=== PATIENT | male | born 1940 | race African-American/Black ===

== ENCOUNTER 2018-03-12 04:14 | Observation (INO) | payer OTHER ==
[2018-03-12] MEDS ORDERED: KETOROLAC TROMETHAMINE 15 MG/ML VIAL IVPUSH ONE (04:59)
[2018-03-12] MEDS ORDERED: SODIUM CHLORIDE 1,000 ML IV SCH (05:00)
--- NOTE | 2018-03-12 05:05 | PDOC ---
Attending Attestation - Resident Resident Name: RubiaJacky - ED Attending Attestation I have performed the following: I have examined & evaluated the patient, The case was reviewed & discussed with the resident, I agree w/resident's findings & plan, Exceptions are as noted - HPI HPI: 03/12/18 05:03 77-year-old male with past medical history of hypertension, prostate cancer under current treatment presents with reproducible right-sided chest pain. Patient states 2 days ago that he felt general onset of atraumatic right-sided rib pain worsened with movement. Denies any short of breath. States that palpation or movement produces the pain. Denies recent illnesses, fevers, chills , cough, vomiting. Denies any exertional component. Denies any rashes or lesions. - Physicial Exam PE: 03/12/18 05:04 GENERAL: Awake, alert, and fully oriented, in no acute distress. HEAD: No signs of trauma EYES: EOMI, sclera anicteric, conjunctiva clear ENT: Auricles normal inspection, hearing grossly normal, nares patent NECK: Normal ROM, supple, no lymphadenopathy, JVD, or masses LUNGS: Breath sounds equal, clear to auscultation bilaterally. No wheezes, and no crackles HEART: Regular rate and rhythm, normal S1 and S2, no murmurs, rubs or gallops. Reproducible right lateral rib tenderness to palpation. No rashes or lesions. ABDOMEN: Soft, nontender, No guarding, no rebound. No masses EXTREMITIES: Normal range of motion, 1+ nonpitting edema b/l. No clubbing or cyanosis. No cords, erythema, or tenderness NEUROLOGICAL: Cranial nerves II through XII grossly intact. Normal speech SKIN: Warm, Dry, normal turgor, no rashes or lesions noted. - Medical Decision Making 03/12/18 05:05 Vital Signs Temp Pulse Resp BP Pulse Ox 97.9 F 66 19 183/60 100 03/12/18 04:35 03/12/18 04:35 03/12/18 04:35 03/12/18 04:35 03/12/18 04:35 Patient's chest pain is quite atypical. Unlikely to be acute cord syndrome or pulmonary embolism. I suspect this is likely muscle skeletal. However, given his history of age and prostate cancer, we'll send a d-dimer and a troponin. If the tests are negative and the patient reports doing better after Toradol, the patient be discharged home with primary care physician follow-up. 03/12/18 06:56 CBC, BMP 03/12/18 05:25 D-dimer positive. Will need CTA of chest. Pt will require two negative troponin and a negative CT and an improvement of symptoms in order for patient to be eligible for discharge. Otherwise, will need to admit patient if abnormal workup. Case signed out to Dr. Denise for further management and disposition. Heart Score/ECG Review #1 ECG reviewed & interpreted by me at: 06:05 03/12/18 06:56 NSR 60, no std/ariana, normal axis, normal intervals, QTC 434 msec
[2018-03-12 05:19] LABS: URINE APPEARANCE CLEAR; URINE BILIRUBIN NEGATIVE (<2.0 mg/dL); URINE BLOOD 1+ (NEGATIVE); URINE COLOR STRAW; URINE GLUCOSE (UA) NEGATIVE (NEGATIVE); URINE KETONE NEGATIVE (NEGATIVE); URINE LEUK ESTERASE NEGATIVE (NEGATIVE); URINE NITRITE NEGATIVE (NEGATIVE); URINE PROTEIN NEGATIVE (NEGATIVE); URINE UROBILINOGEN NEGATIVE mg/dL (0.2-1.0)
--- NOTE | 2018-03-12 05:21 | PDOC ---
History of Present Illness - General Chief Complaint: Pain Stated Complaint: RIGHT SIDE PAIN Time Seen by Provider: 03/12/18 04:37 History Source: Patient Exam Limitations: No Limitations - History of Present Illness Initial Comments: 03/12/18 05:55 77m with pmh of HTN, prostate cancer under current treatment presents with reproducible right-sided rib pain. Patient states 2 days ago that he felt general onset of atraumatic right-sided rib pain worsened with movement. Denies any short of breath. States that palpation doesn't reproduce the pain, only movement. Denies recent illnesses, fevers, chills, cough, vomiting. Past History - Past Medical History Allergies/Adverse Reactions: Allergies Allergy/AdvReac Type Severity Reaction Status Date / Time No Known Allergies Allergy Verified 03/12/18 04:43 Home Medications: Ambulatory Orders Unobtainable 03/12/18 Cancer: Yes (prostate) COPD: No - Suicide/Smoking/Psychosocial Hx Smoking History: Never smoked Have you smoked in the past 12 months: No Information on smoking cessation initiated: No Hx Alcohol Use: No Drug/Substance Use Hx: No Review of Systems - Review of Systems Able to Perform ROS?: Yes Is the patient limited [place] proficient: No Constitutional: No: Symptoms Reported HEENTM: No: Symptoms Reported Respiratory: No: Symptoms reported Cardiac (ROS): Yes: Symptoms Reported, Chest Pain ABD/GI: No: Symptoms Reported : No: Symptoms Reported Musculoskeletal: No: Symptoms Reported Integumentary: No: Symptoms Reported Neurological: No: Symptoms reported All Other Systems: Reviewed and Negative *Physical Exam - Vital Signs Last Vital Signs Temp Pulse Resp BP Pulse Ox 97.9 F 66 19 183/60 100 03/12/18 04:35 03/12/18 04:35 03/12/18 04:35 03/12/18 04:35 03/12/18 04:35 - Physical Exam Comments: 03/12/18 06:07 GENERAL: Awake, alert, and fully oriented, in no acute distress. HEAD: No signs of trauma EYES: EOMI, sclera anicteric, conjunctiva clear ENT: Auricles normal inspection, hearing grossly normal, nares patent NECK: Normal ROM, supple, no lymphadenopathy, JVD, or masses LUNGS: Breath sounds equal, clear to auscultation bilaterally. No wheezes, and no crackles HEART: Regular rate and rhythm, normal S1 and S2, no murmurs, rubs or gallops. Reproducible right lateral rib tenderness to palpation. No rashes or lesions. ABDOMEN: Soft, nontender, No guarding, no rebound. No masses EXTREMITIES: Normal range of motion, 1+ nonpitting edema b/l. No clubbing or cyanosis. No cords, erythema, or tenderness NEUROLOGICAL: Cranial nerves II through XII grossly intact. Normal speech SKIN: Warm, Dry, normal turgor, no rashes or lesions noted. ED Treatment Course - LABORATORY CBC & Chemistry Diagram: 03/12/18 05:25 03/12/18 05:25 - ADDITIONAL ORDERS Additional order review: Laboratory Results 03/12/18 03/12/18 03/12/18 05:25 05:25 05:00 PT with INR 11.40 INR 1.01 PTT (Actin FS) 31.7 D-Dimer 1570 H Sodium Cancelled Potassium Cancelled Chloride Cancelled Carbon Dioxide Cancelled Anion Gap Cancelled BUN Cancelled Creatinine Cancelled Creat Clearance w eGFR Cancelled Random Glucose Cancelled Calcium Cancelled Total Bilirubin Cancelled AST Cancelled ALT Cancelled Alkaline Phosphatase Cancelled Creatine Kinase Cancelled Troponin I Cancelled Total Protein Cancelled Albumin Cancelled Urine Color Straw Urine Appearance Clear Urine pH 6.0 Ur Specific [place] 1.013 Urine Protein Negative Urine Glucose (UA) Negative Urine Ketones Negative Urine Blood 1+ H Urine Nitrite Negative Urine Bilirubin Negative Urine Urobilinogen Negative Ur Leukocyte Esterase Negative Urine WBC (Auto) <1 Urine RBC (Auto) 2 Ur Epithelial Cells Rare 03/12/18 05:25 RBC 4.78 MCV 76.0 L MCHC 33.2 RDW 21.0 H MPV 8.0 Neutrophils % 45.9 Lymphocytes % 37.8 Monocytes % 12.3 H Eosinophils % 3.2 Basophils % 0.8 - Medications Given in the ED: ED Medications Discontinued Medications Generic Name Dose Route Start Last Admin Trade Name Freq PRN Reason Stop Dose Admin Ketorolac Tromethamine 15 mg 03/12/18 04:59 03/12/18 05:39 Toradol Injection - IVPUSH 03/12/18 05:00 15 mg ONCE ONE Administration Morphine Sulfate 4 mg 03/12/18 06:25 03/12/18 06:41 Morphine Injection - IVPUSH 03/12/18 06:26 4 mg ONCE ONE Administration Medical Decision Making - Medical Decision Making 03/12/18 06:0 Presentation consistent with costochondritis but will ru/o cardiac event, PE 03/12/18 06:50 Patient signed out to Dr. Reis *DC/Admit/Observation/Transfer Diagnosis at time of Disposition: Costochondral pain - Discharge Dispostion Condition at time of disposition: Fair - Referrals Referrals: Anton Flores MD [Primary Care Provider] - - Patient Instructions - Post Discharge Activity
[2018-03-12 05:24] LABS: EPI CELLS RARE /HPF (FEW)
[2018-03-12] MEDS ORDERED: KETOROLAC TROMETHAMINE 15 MG/ML VIAL ONE (05:29)
[2018-03-12 05:32] LABS: BASO % 0.8 % (0-2.0); EOS % 3.2 % (0-4.5); HEMATOCRIT 36.3 % (35.4-49); HEMOGLOBIN 12.1 GM/dL (11.7-16.9); LYMPH % 37.8 % (8-40); MCH 25.3 pg (25.7-33.7); MCHC 33.2 g/dl (32.0-35.9); MONO % 12.3 % (3.8-10.2); NEUT % 45.9 % (42.8-82.8); PLATELET COUNT 288 K/MM3 (134-434); RBC 4.78 M/mm3 (4.00-5.60); WHITE BLOOD COUNT 9.3 K/mm3 (4.0-10.0)
[2018-03-12 05:49] LABS: INR 1.01 (0.82-1.09); PROTHROMBIN TIME (PATIENT) 11.4 SEC (9.7-13.0)
[2018-03-12 05:51] LABS: ACTIVATED PTT 31.7 SECONDS (26.9-34.4)
[2018-03-12] MEDS ORDERED: morphine SULFATE 4 MG/ML VIAL ONE (06:24)
[2018-03-12] MEDS ORDERED: morphine CARPU-JECT 4 MG/1 ML DISP.SYRIN IVPUSH ONE (06:25)
--- NOTE | 2018-03-12 06:58 | PDOC ---
*Physical Exam - Vital Signs Last Vital Signs Temp Pulse Resp BP Pulse Ox 97.9 F 66 19 183/60 100 03/12/18 04:35 03/12/18 04:35 03/12/18 04:35 03/12/18 04:35 03/12/18 04:35 - Physical Exam Comments: 03/12/18 09:30 General Appearance: Nourished. No Apparent Distress HEENT: No Pharyngeal Erythema, Tonsillar Exudate, Tonsillar Erythema Neck: No Cervical Lymphadenopathy Respiratory/Chest: Lungs Clear, Normal Breath Sounds. No Crackles, Rales, Rhonchi, Wheezing Cardiovascular: Regular Rhythm, Regular Rate. No Murmur, Gallops, Rubs Gastrointestinal/Abdominal: Normal Bowel Sounds, Soft. No Guarding, Rebound, Tenderness Musculoskeletal: No CVA Tenderness Extremity: Normal Capillary Refill Integumentary: Normal Color, Dry, Warm Neurologic: Fully Oriented, Alert, Normal Mood/Affect, Normal Response, ED Treatment Course - LABORATORY CBC & Chemistry Diagram: 03/12/18 05:25 03/12/18 06:30 - ADDITIONAL ORDERS Additional order review: Laboratory Results 03/12/18 03/12/18 03/12/18 05:25 05:25 05:00 PT with INR 11.40 INR 1.01 PTT (Actin FS) 31.7 D-Dimer 1570 H Sodium Cancelled Potassium Cancelled Chloride Cancelled Carbon Dioxide Cancelled Anion Gap Cancelled BUN Cancelled Creatinine Cancelled Creat Clearance w eGFR Cancelled Random Glucose Cancelled Calcium Cancelled Total Bilirubin Cancelled AST Cancelled ALT Cancelled Alkaline Phosphatase Cancelled Creatine Kinase Cancelled Troponin I Cancelled Total Protein Cancelled Albumin Cancelled Urine Color Straw Urine Appearance Clear Urine pH 6.0 Ur Specific [place] 1.013 Urine Protein Negative Urine Glucose (UA) Negative Urine Ketones Negative Urine Blood 1+ H Urine Nitrite Negative Urine Bilirubin Negative Urine Urobilinogen Negative Ur Leukocyte Esterase Negative Urine WBC (Auto) <1 Urine RBC (Auto) 2 Ur Epithelial Cells Rare 03/12/18 05:25 RBC 4.78 MCV 76.0 L MCHC 33.2 RDW 21.0 H MPV 8.0 Neutrophils % 45.9 Lymphocytes % 37.8 Monocytes % 12.3 H Eosinophils % 3.2 Basophils % 0.8 - Medications Given in the ED: ED Medications Discontinued Medications Generic Name Dose Route Start Last Admin Trade Name Freq PRN Reason Stop Dose Admin Ketorolac Tromethamine 15 mg 03/12/18 04:59 03/12/18 05:39 Toradol Injection - IVPUSH 03/12/18 05:00 15 mg ONCE ONE Administration Morphine Sulfate 4 mg 03/12/18 06:25 03/12/18 06:41 Morphine Injection - IVPUSH 03/12/18 06:26 4 mg ONCE ONE Administration Progress Note - Progress Note Progress Note: The patient is a 77 year old male who presents for evaluation of chest pain that his likely musculoskeletal in nature. Work up has been negative thus far. The patient is pending a repeat troponin and CTA to evaluate further. Medical Decision Making - Medical Decision Making 03/12/18 18:53 CT is negative for PE as read by our radiologist. Troponin is negative. The patient continues to report no change in his chest pain despite medication. He notes that he has not been evaluated by a visual display associate in the past. We believe he requires admission for further monitoring and work up. We discussed the case with Dr. Calzada who accepted the patient for admission. *DC/Admit/Observation/Transfer Diagnosis at time of Disposition: Chest pain Qualifiers: Chest pain type: unspecified Qualified Code(s): R07.9 - Chest pain, unspecified - Discharge Dispostion Condition at time of disposition: Stable Decision to Admit order: Yes - Referrals - Patient Instructions - Post Discharge Activity
[2018-03-12 07:05] LABS: ALBUMIN 3.6 g/dl (3.4-5.0); ANION GAP 7 (8-16); BILIRUBIN,TOTAL 0.4 mg/dL (0.2-1.0); BLOOD UREA NITROGEN 16 mg/dL (7-18); CALCIUM 9.3 mg/dL (8.5-10.1); CHLORIDE 104 mmol/L (98-107); CO2 26 mmol/L (21-32); CREATININE 0.7 mg/dL (0.7-1.3); GLUCOSE,RANDOM 82 mg/dL (74-106); SGPT/ALT 14 U/L (12-78); SODIUM 137 mmol/L (136-145); TOT PROT 7.6 g/dl (6.4-8.2)
[2018-03-12 07:07] LABS: ALK PHOS 99 U/L (45-117)
[2018-03-12 07:23] LABS: POTASSIUM 4.8 mmol/L (3.5-5.1)
[2018-03-12 07:24] LABS: SGOT/AST 15 U/L (15-37)
--- NOTE | 2018-03-12 10:13 | EKG ---
Test Reason : Blood Pressure : / mmHG Vent. Rate : 060 BPM Atrial Rate : 060 BPM P-R Int : 194 ms QRS Dur : 082 ms QT Int : 434 ms P-R-T Axes : 056 054 028 degrees QTc Int : 434 ms NORMAL SINUS RHYTHM NONSPECIFIC ST ABNORMALITY WHEN COMPARED WITH ECG OF 06-JAN-2018 06:42, NO SIGNIFICANT CHANGE WAS FOUND Confirmed by JACINTA LIZAMA MD ([id number]) on 03/12/2018 10:13:40 AM Referred By: Confirmed By:JACINTA LIZAMA MD
[2018-03-12] MEDS ORDERED: METHOCARBAMOL 500 MG TABLET PO ONE (11:38)
[2018-03-12] MEDS ORDERED: METHOCARBAMOL 500 MG TABLET ONE (11:47)
[2018-03-12] MEDS ORDERED: amLODIPine BESYLATE 10 MG TABLET (FP) PO ONE (11:56)
[2018-03-12] MEDS ORDERED: LISINOPRIL 10 MG TABLET (FP) PO ONE (11:56)
[2018-03-12] MEDS ORDERED: LISINOPRIL 5 MG TABLET (FP) ONE (12:04)
[2018-03-12] MEDS ORDERED: amLODIPine BESYLATE 5 MG TABLET (FP) ONE (12:04)
[2018-03-12 16:03] VITALS: BMI 33.5
[2018-03-12] MEDS ORDERED: traMADol HCL 50 MG TABLET PO PRN (17:19)
[2018-03-12] MEDS ORDERED: ACETAMINOPHEN 325 MG TABLET (FP) PO PRN (17:19)
[2018-03-12] MEDS: morphine CARPU-JECT 2 MG/1 ML DISP.SYRIN IVPUSH PRN (17:31)
[2018-03-12] MEDS: amLODIPine BESYLATE 10 MG TABLET (FP) PO SCH (17:31)
--- NOTE | 2018-03-12 20:12 | CON.CARD ---
Consult Consult Specialty:: Cardiology Referred by:: Dr. Calzada Reason for Consultation:: Chest pain - History of Present Illness Chief Complaint: Chest pain History of Present Illness: 77 year-old man with a PMHx of HTN, s/p low back operation with gradually improved back pain, prostate cancer under current treatment presented to ED 2017 with reproducible right-sided rib pain. The patient developed atraumatic upper right-sided rib pain worsened with movement and on palpation. He has no SOB, palpitation, syncope or near syncope. No edema, orthopnea or PND. His exercise tolerance is very limited because of back pain. He can walk one block in slow pace with his walker. PE ruled out by CTA. ECG is normal without acute ST-T changes. WI ruled out. Echocardiogram 03/12/2018 was TDS. It showed normal LV and RV. Mild AR and MR noted. - History Source History Provided By: Patient Limitations to Obtaining History: No Limitations - Alcohol/Substance Use Hx Alcohol Use: No - Smoking History Smoking history: Never smoked Have you smoked in the past 12 months: No Home Medications - Allergies Allergies/Adverse Reactions: Allergies Allergy/AdvReac Type Severity Reaction Status Date / Time No Known Allergies Allergy Verified 03/12/18 04:43 - Home Medications Home Medications: Ambulatory Orders Amlodipine Besylate 10 mg PO DAILY 03/12/18 Lisinopril 10 mg PO DAILY 03/12/18 Review of Systems - Review of Systems Constitutional: reports: No Symptoms Eyes: reports: No Symptoms HENT: reports: No Symptoms Neck: reports: No Symptoms Cardiovascular: reports: Chest Pain Respiratory: reports: No Symptoms Gastrointestinal: reports: No Symptoms Genitourinary: reports: No Symptoms Musculoskeletal: reports: Back Pain Integumentary: reports: No Symptoms Neurological: reports: No Symptoms Endocrine: reports: No Symptoms Hematology/Lymphatic: reports: No Symptoms Vital Signs: Vital Signs Temperature 98.6 F 03/12/18 15:40 Pulse Rate 56 L 03/12/18 18:35 Respiratory Rate 13 03/12/18 18:35 Blood Pressure 150/57 03/12/18 18:35 O2 Sat by Pulse Oximetry (%) 98 03/12/18 18:35 General: Well developed. Well nourished. No acute distress. Head: Normocephalic. Atraumatic, Eyes: PERRLA, EOMI. Sclerae anicteric. Conjunctivae clear. Neck: Supple. No JVD. No bruits. Heart: Normal S1, S2: Regular rhythm and rate. II/ KEEGAN. No gallop or rub. Lungs: Symmetrical air entry. Clear to auscultation. No crackle. No wheezing or rhonchi. Abdomen: Soft. Bowel sound positive. Non tender. No masses. Extremities: No edema. No clubbing or cyanosis. PD 2+, equal bilaterally. - Other Data Labs, Other Data: CBC, BMP 03/12/18 05:25 03/12/18 06:30 INR, PTT INR 1.01 (0.82-1.09) 03/12/18 05:25 Troponin, BNP 03/12/18 03/12/18 03/12/18 05:25 06:30 11:06 Troponin I Cancelled < 0.02 < 0.02 Troponin, BNP 03/12/18 03/12/18 03/12/18 05:25 06:30 11:06 Troponin I Cancelled < 0.02 < 0.02 Imaging - Results Cat Scan: Report Reviewed (No PE.) EKG: Image Reviewed (03/12/2018 Sinus rhythm. Normal ECG.) Assessment/Plan 77 year-old man with a PMHx of HTN, s/p low back operation with gradually improved back pain, prostate cancer under current treatment presented to ED 2017 with reproducible right-sided rib pain. PE ruled out by CTA. ECG is normal without acute ST-T changes. WI ruled out. Echocardiogram 03/12/2018 was TDS. It showed normal LV and RV. Mild AR and MR noted. 1) Atypical chest pain: reproducible with local tenderness, non-cardiac, not acute coronary syndrome. Echo showed normal LV function without regional wall motion abnormality. No further cardiac testing recommended at this time. No need additional equipment monitor phototypesetting. Add aspirin 81 mg daily. 2) Hypertension: BP is mild to moderately elevated. May increase Lisinopril to 20 mg daily. Continue Amlodipine 10 mg daily. Please call us for reconsult as needed.
[2018-03-12] MEDS: HEPARIN NA (PORCINE) 5,000 UNITS/ML 1ML VIAL SQ SCH (21:28)
[2018-03-13] MEDS: morphine CARPU-JECT 2 MG/1 ML DISP.SYRIN IVPUSH PRN ×2 (00:16→09:19)
[2018-03-13 06:36] VITALS: TEMP 98.6
--- NOTE | 2018-03-13 07:30 | HP ---
Admitting History and Physical - Primary Care Physician PCP: Jordana Mercedes - Admission Chief Complaint: Chest Pain History of Present Illness: 77-year-old male with past medical history of hypertension, prostate cancer under current treatment presents with reproducible right-sided chest pain. Patient states 2 days ago that he felt general onset of atraumatic right-sided rib pain worsened with movement. Denies any short of breath. States that palpation or movement produces the pain. Denies recent illnesses, fevers, chills , cough, vomiting. Denies any exertional component. Denies any rashes or lesions. History Source: Patient Limitations to Obtaining History: No Limitations - Smoking History Smoking history: Never smoked Have you smoked in the past 12 months: No - Alcohol/Substance Use Hx Alcohol Use: No Home Medications - Allergies Allergies/Adverse Reactions: Allergies Allergy/AdvReac Type Severity Reaction Status Date / Time No Known Allergies Allergy Verified 03/12/18 04:43 - Home Medications Home Medications: Ambulatory Orders RX: Amlodipine Besylate 10 mg PO DAILY 03/12/18 RX: Lisinopril 10 mg PO DAILY 03/12/18 RX: Acetaminophen [Tylenol .Regular Strength -] 650 mg PO Q6H PRN tablet RX: traMADol HCL [Ultram -] 50 mg PO Q6H PRN #20 tablet MDD 4 03/13/18 Review of Systems - Review of Systems Constitutional: reports: No Symptoms Eyes: reports: No Symptoms HENT: reports: No Symptoms Neck: reports: No Symptoms Cardiovascular: reports: Chest Pain Respiratory: reports: No Symptoms Gastrointestinal: reports: No Symptoms Genitourinary: reports: No Symptoms Breasts: reports: No Symptoms Reported Musculoskeletal: reports: No Symptoms Integumentary: reports: No Symptoms Neurological: reports: No Symptoms Endocrine: reports: No Symptoms Hematology/Lymphatic: reports: No Symptoms Psychiatric: reports: No Symptoms Physical Examination Vital Signs: Vital Signs Temperature 98.6 F 03/13/18 06:00 Pulse Rate 64 03/13/18 06:00 Respiratory Rate 17 03/13/18 06:00 Blood Pressure 157/64 03/13/18 06:00 O2 Sat by Pulse Oximetry (%) 97 03/12/18 21:53 Constitutional: Yes: Well Nourished, No Distress, Calm Cardiovascular: Yes: Regular Rate and Rhythm Respiratory: Yes: Regular Gastrointestinal: Yes: Normal Bowel Sounds, Soft Musculoskeletal: Yes: WNL Extremities: Yes: WNL Integumentary: Yes: WNL Neurological: Yes: Alert, Oriented Psychiatric: Yes: Alert, Oriented Labs: CBC, BMP 03/12/18 05:25 03/12/18 06:30 Imaging - Results Chest X-ray: Report Reviewed Cat Scan: Report Reviewed Problem List - Problems (1) Chest pain Assessment/Plan: -Seen by cardiology and cleared to be discharged -Echo unremarkable -EKG- no changes -Cardiac enzymes negative -Pain only on inspiration, no SOB, N,V -CTA negative for PE Code(s): R07.9 - CHEST PAIN, UNSPECIFIED Qualifiers: Chest pain type: unspecified Qualified Code(s): R07.9 - Chest pain, unspecified Assessment/Plan see problem list d/c home, pt to f/u with PCP within 1 week
[2018-03-13] MEDS ORDERED: PT OWN MED DRAWER 7, Y5N ONE (09:18)
[2018-03-13] MEDS: HEPARIN NA (PORCINE) 5,000 UNITS/ML 1ML VIAL SQ SCH (09:22)
[2018-03-13] MEDS: amLODIPine BESYLATE 10 MG TABLET (FP) PO SCH (09:23)
--- NOTE | 2018-03-13 12:30 | DS ---
Physical Examination Vital Signs: Vital Signs Temperature 98.6 F 03/13/18 06:00 Pulse Rate 70 03/13/18 09:29 Respiratory Rate 12 03/13/18 09:29 Blood Pressure 130/55 03/13/18 09:29 O2 Sat by Pulse Oximetry (%) 99 03/13/18 09:30 Constitutional: Yes: Well Nourished, No Distress, Calm Cardiovascular: Yes: Regular Rate and Rhythm Respiratory: Yes: Regular Gastrointestinal: Yes: Normal Bowel Sounds, Soft Musculoskeletal: Yes: WNL Extremities: Yes: WNL Neurological: Yes: Alert, Oriented Psychiatric: Yes: Alert, Oriented Labs: CBC, BMP 03/12/18 05:25 03/12/18 06:30 Discharge Summary Reason For Visit: CHEST PAIN Current Active Problems Chest pain (Acute) Hospital Course: 77-year-old male with past medical history of hypertension, prostate cancer under current treatment presents with reproducible right-sided chest pain. Patient states 2 days ago that he felt general onset of atraumatic right-sided rib pain worsened with movement. Denies any short of breath. States that palpation or movement produces the pain. Denies recent illnesses, fevers, chills , cough, vomiting. Denies any exertional component. Denies any rashes or lesions. Condition: Stable - Instructions Diet, Activity, Other Instructions: Take Tramadol 50 mg every 6 hours as needed for pain Follow up with PCP in 1 week Referrals: Roseanne Morris MD [Staff Physician] - Disposition: HOME - Home Medications Comprehensive Discharge Medication List: Ambulatory Orders RX: Amlodipine Besylate 10 mg PO DAILY 03/12/18 RX: Lisinopril 10 mg PO DAILY 03/12/18 RX: Acetaminophen [Tylenol .Regular Strength -] 650 mg PO Q6H PRN tablet RX: traMADol HCL [Ultram -] 50 mg PO Q6H PRN #20 tablet MDD 4 03/13/18
[2018-03-13 13:23] VITALS: BP 122/52; PULSE 62
== END 2018-03-13 14:00 | disposition home or self-care (01) ==
LOC: JER 04:14 → JERBED 13:56 → INTOOBSV 13:56 → J2W 15:31
PROVIDERS: ADMIT Family Medicine; ATTEND Family Medicine
PROC: 3E0333Z Introduction of Anti-inflammatory into Peripheral Vein, Percutaneous Approach (ICD-10-PCS; principal; 2018-03-12)
PROC: 3E033NZ Introduction of Analgesics, Hypnotics, Sedatives into Peripheral Vein, Percutaneous Approach (ICD-10-PCS; 2018-03-12)
PROC: 3E0337Z Introduction of Electrolytic and Water Balance Substance into Peripheral Vein, Percutaneous Approach (ICD-10-PCS; 2018-03-12)
PROC: 3E013GC Introduction of Other Therapeutic Substance into Subcutaneous Tissue, Percutaneous Approach (ICD-10-PCS; 2018-03-12)
DX: R07.89 Other chest pain (principal); I10 Essential (primary) hypertension; C61 Malignant neoplasm of prostate
CPT/HCPCS: 36415; 71045-TC-FY; 71275-TC; 80053; 81003; 81015; 82550; 83735; 84484; 85025; 85379; 85610; 85730; 87086; 93005; 93010; 96372; 96374; 96375; 96376; 99285-25; G0378; J1644; J7030

== ENCOUNTER 2018-07-21 12:03 | Emergency (ER) | payer OTHER ==
[2018-07-21 12:11] VITALS: BMI 33.8
[2018-07-21] MEDS ORDERED: ACETAMINOPHEN 1000 MG/100 ML VIAL (NON FORMULARY) IVPB ONE (13:16)
[2018-07-21] MEDS ORDERED: ACETAMINOPHEN INJECTION 100 ML IVPB ONE (13:23)
--- NOTE | 2018-07-21 13:38 | PDOC ---
History of Present Illness <Yoly Diaz - Last Filed: 07/21/18 17:33> - History of Present Illness Initial Comments: 07/21/18 13:59 The patient is a 77 year old male, with a significant PMH of HTN and prostate cancer s/p radiation, last radiation was 2 weeks ago at [facility] who presents to the emergency department with increased swelling and weakness to the bilateral lower extremities for the past two weeks. Patient states he would typically use his walker to go to a clinic in the [place] for his radiation. Since then patient has noticed increased swelling and weakness as he has not been ambulating as much. Patient notes he could walk up until four days ago. Patient presents to the ER today because he could not get up and required assistance, which is not normal for him. Patient is also complaining of wounds to his posterior legs and his buttocks. Patient reports having a lower back surgery for a cyst of the spine back in 2017. Patient has no urinary complaints today. Denies numbness in LE. The patient denies chest pain, shortness of breath, headache and dizziness. Denies fever, chills, nausea, vomit, diarrhea and constipation. Denies dysuria, frequency, urgency and hematuria. Allergies: NKA Meds: Tramadol, lisinopril, amlodipine, bicalutamide, baby aspirin Past surgical history: None reported. Social history: No reported alcohol, drug, or cigarette use. PCP: Care is received at [facility]. Unknown who his oncologist is. <Abdullahi Rosenberg - Last Filed: 07/22/18 19:54> - General Chief Complaint: Edema Stated Complaint: Edema Time Seen by Provider: 07/21/18 12:19 Past History <Yoly Diaz - Last Filed: 07/21/18 17:33> - Past Medical History Anemia: No Asthma: No Cancer: Yes (prostate,currently treated with radiation at [facility].) Cardiac Disorders: No CVA: No COPD: No CHF: No Dementia: No Diabetes: No GI Disorders: No Disorders: No HTN: Yes Hypercholesterolemia: No Liver Disease: No Seizures: No Thyroid Disease: No Other medical history: last radiation tx 07/14/18 - Surgical History Abdominal Surgery: No Appendectomy: No Cardiac Surgery: No Cholecystectomy: No Lung Surgery: No Neurologic Surgery: Yes (laminectomy 07/2017) Orthopedic Surgery: No - Suicide/Smoking/Psychosocial Hx Smoking History: Unknown if ever smoked Have you smoked in the past 12 months: No Hx Alcohol Use: No Drug/Substance Use Hx: No Substance Use Type: None Hx Substance Use Treatment: No <Abdullahi Rosenberg - Last Filed: 07/22/18 19:54> - Past Medical History Allergies/Adverse Reactions: Allergies Allergy/AdvReac Type Severity Reaction Status Date / Time No Known Allergies Allergy Verified 07/21/18 12:11 Home Medications: Ambulatory Orders Amlodipine Besylate 10 mg PO DAILY 03/12/18 Lisinopril 10 mg PO DAILY 03/12/18 Acetaminophen [Tylenol .Regular Strength -] 650 mg PO Q6H PRN tablet 03/13/18 Aspirin 81 mg PO DAILY 07/21/18 Atorvastatin Calcium [Lipitor] 20 mg PO DAILY 07/21/18 Bicalutamide [Casodex -] 50 mg PO DAILY 07/21/18 Naproxen Sodium [Aleve] 440 mg PO DAILY 07/21/18 Tramadol HCl 50 mg PO BID 07/21/18 Review of Systems - Review of Systems Comments:: 07/21/18 14:03 GENERAL/CONSTITUTIONAL: No fever or chills. No weakness. HEAD, EYES, EARS, NOSE AND THROAT: No change in vision. No ear pain or discharge. No sore throat. GASTROINTESTINAL: No nausea, vomiting, diarrhea or constipation. GENITOURINARY: No dysuria, frequency, or change in urination. CARDIOVASCULAR: No chest pain or shortness of breath. RESPIRATORY: No cough, wheezing, or hemoptysis. MUSCULOSKELETAL: (+) Leg swelling and weakness. No neck pain. SKIN: (+) Ulcers on his posterior legs and buttocks. NEUROLOGIC: No headache, vertigo, loss of consciousness, or change in strength/ sensation. ENDOCRINE: No increased thirst. No abnormal weight change. HEMATOLOGIC/LYMPHATIC: No anemia, easy bleeding, or history of blood clots. ALLERGIC/IMMUNOLOGIC: No hives or skin allergy. <Abdullahi Rosenberg - Last Filed: 07/22/18 19:54> *Physical Exam - Vital Signs Last Vital Signs Temp Pulse Resp BP Pulse Ox 99.2 F 90 18 150/57 L 100 07/21/18 12:53 07/21/18 12:53 07/21/18 12:53 07/21/18 12:10 07/21/18 12:53 <Yoly Diaz - Last Filed: 07/21/18 17:33> - Vital Signs Last Vital Signs Temp Pulse Resp BP Pulse Ox 99.2 F 90 18 150/57 L 100 07/21/18 12:53 07/21/18 12:53 07/21/18 12:53 07/21/18 12:10 07/21/18 12:53 - Physical Exam Comments: 07/21/18 14:03 GENERAL: Awake, alert, and fully oriented, in no acute distress HEAD: No signs of trauma EYES: PERRLA, EOMI, sclera anicteric, conjunctiva clear ENT: Auricles normal inspection, hearing grossly normal, nares patent, oropharynx clear without exudates. Moist mucosa NECK: Normal ROM, supple, no lymphadenopathy, JVD, or masses LUNGS: Breath sounds equal, clear to auscultation bilaterally. No wheezes, and no crackles HEART: Regular rate and rhythm, normal S1 and S2, no murmurs, rubs or gallops ABDOMEN: Soft, nontender, normoactive bowel sounds. No guarding, no rebound. No masses EXTREMITIES: (+) Erythema and pitting edema to the lower extremities bilaterally up to the knees. No cords or tenderness. RECTAL: (+) two 2cm non thrombosed hemorrhoids at the 10 and 11 o'clock (+) Stage 2 skin breakdown to the sacrum and posterior thighs bilaterally. Mildly diminished rectal tone BACK: No midline spinal tenderness in cervical/thoracic/lumbar region NEUROLOGICAL: Normal speech, cranial nerves intact, 4/5 strength in LE extremities, normal sensation to light touch in all 4 extremities, gait deferred , normal reflexes and tone SKIN: as noted above <Jeanie Rosenberga - Last Filed: 07/22/18 19:54> ED Treatment Course - LABORATORY CBC & Chemistry Diagram: 07/21/18 14:00 07/21/18 14:00 - ADDITIONAL ORDERS Additional order review: Laboratory Results 07/21/18 07/21/18 07/21/18 14:00 14:00 14:00 PT with INR 12.40 INR 1.05 PTT (Actin FS) 29.0 Sodium 139 Potassium 4.5 Chloride 106 Carbon Dioxide 27 Anion Gap 6 L BUN 21 H Creatinine 0.6 Creat Clearance w eGFR > 60 Random Glucose 65 L Calcium 9.2 Total Bilirubin 0.4 AST 44 H ALT 25 Alkaline Phosphatase 90 C-Reactive Protein Total Protein 7.2 Albumin 3.4 Blood Type O POSITIVE Antibody Screen Negative 07/21/18 14:00 PT with INR INR PTT (Actin FS) Sodium Potassium Chloride Carbon Dioxide Anion Gap BUN Creatinine Creat Clearance w eGFR Random Glucose Calcium Total Bilirubin AST ALT Alkaline Phosphatase C-Reactive Protein 7.6 H Total Protein Albumin Blood Type Antibody Screen 07/21/18 14:00 RBC 4.25 MCV 79.8 L MCHC 32.2 RDW 21.2 H MPV 8.0 Neutrophils % 68.7 Lymphocytes % 14.0 D Monocytes % 13.9 H Eosinophils % 2.9 Basophils % 0.5 - Medications Given in the ED: ED Medications Discontinued Medications Generic Name Dose Route Start Last Admin Trade Name Freq PRN Reason Stop Dose Admin Acetaminophen 1,000 mg 07/21/18 13:16 07/21/18 13:45 Ofirmev Injection - IVPB 07/21/18 13:17 1,000 mg ONCE ONE Administration <Yoly Diaz - Last Filed: 07/21/18 17:33> - LABORATORY CBC & Chemistry Diagram: 07/21/18 14:00 07/21/18 14:00 - RADIOLOGY Radiology Studies Ordered: Category Date Time Status LUMBAR SPINE MRI W/O CONTRAST [MRI] Stat MRI 07/21/18 13:14 Ordered THORACIC SPINE MRI W/O CONTR [MRI] Stat MRI 07/21/18 13:14 Ordered DUPLEX VASCUL US-2LEGS [US] Stat Ultrasound 07/21/18 13:14 Ordered <Abdullahi Rosenberg - Last Filed: 07/22/18 19:54> Medical Decision Making - Medical Decision Making 07/21/18 16:15 Case d/w Dr. Evangelista, on-call neurologist. Patient will have an MRI at this time. 07/21/18 16:33 Imaging: Duplex US Reported by: Dr. Beavers Impression: No evidence of DVT. <Yoly Diaz - Last Filed: 07/21/18 17:33> - Critical Care Time Critical Care Statement: 90 - Medical Decision Making 07/21/18 14:08 77yo M with MMP including prostate ca on radiation, lower back cyst removal 2016 presents to the ED with progressive LE weakness and edema. Vitals wnl. Exam with 4/5 LE weakness and LE edema and redness. In light of prostate ca, concern for progression of disease causing spinal cord impingement. Pt could also have epidural abscess. WIll obtain stat MRI. Also on ddx is deconditioning vs infection. Plan -labs -MRI -UA -speak with pt's oncologists at [facility] -admit 07/21/18 15:08 MRI contacted re stat MRI to r/o cord compression State the supervisor photoengraving is not there to fit the pt on the MRI schedule and must be present to bump the currently scheduled pts They requested we wait to speak wt supervisor photoengraving 07/21/18 15:38 Spoke with supervisor photoengraving, they will squeeze pt in after current study 07/21/18 16:00 telecommunications field technician now requiring neuro c/s to get stat MRI Dr. Evangelista has been paged 07/21/18 16:[address] Evangelista Agrees with need for stat studies 07/21/18 16:28 Spoke with fish and wildlife technician, will call down for pt when current study is off the table 07/21/18 17:00 fish and wildlife technician now requiring note on the chart from the neurologist REiterated with tech that this study must be done stat with or without note from neurology as this is an emergent diagnosis fish and wildlife technician agrees to take pt down to MRI after current study 07/21/18 17:28 TAble still occupied per MRI 07/21/18 18:00 Pt taken down to MRI 07/21/18 19:00 Pt currently at MRI, signed out to overnight attending for f/u MRI and dispo <Abdullahi Rosenberg - Last Filed: 07/22/18 19:54> *DC/Admit/Observation/Transfer <Yoly Diaz - Last Filed: 07/21/18 17:33> <Abdullahi Rosenberg - Last Filed: 07/22/18 19:54> Diagnosis at time of Disposition: Cauda equina compression - Discharge Dispostion Disposition: TRANSFER ACUTE CARE/OTHER HOSP Condition at time of disposition: Stable
[2018-07-21 14:10] LABS: BASO % 0.5 % (0-2.0); EOS % 2.9 % (0-4.5); HEMATOCRIT 33.9 % (35.4-49); HEMOGLOBIN 10.9 GM/dL (11.7-16.9); MCH 25.6 pg (25.7-33.7); MCHC 32.2 g/dl (32.0-35.9); MEAN CELL VOLUME 79.8 fl (80-96); MONO % 13.9 % (3.8-10.2); NEUT % 68.7 % (42.8-82.8); PLATELET COUNT 268 K/MM3 (134-434); RBC 4.25 M/mm3 (4.00-5.60); RDW 21.2 % (11.9-15.9); WHITE BLOOD COUNT 6.4 K/mm3 (4.0-10.0)
[2018-07-21 14:29] LABS: INR 1.05 (0.83-1.09); PROTHROMBIN TIME (PATIENT) 12.4 SEC (9.7-13.0)
[2018-07-21 14:50] LABS: ALBUMIN 3.4 g/dl (3.4-5.0); ALK PHOS 90 U/L (45-117); ANION GAP 6 MMOL/L (8-16); BILIRUBIN,TOTAL 0.4 mg/dL (0.2-1); BLOOD UREA NITROGEN 21 mg/dL (7-18); CALCIUM 9.2 mg/dL (8.5-10.1); CHLORIDE 106 mmol/L (98-107); CO2 27 mmol/L (21-32); CREATININE 0.6 mg/dL (0.55-1.3); GLUCOSE,RANDOM 65 mg/dL (74-106); POTASSIUM 4.5 mmol/L (3.5-5.1); SGOT/AST 44 U/L (15-37); SGPT/ALT 25 U/L (13-61); SODIUM 139 mmol/L (136-145); TOT PROT 7.2 g/dl (6.4-8.2)
[2018-07-21 16:01] LABS: OVALOCYTE 1+
[2018-07-21] MEDS ORDERED: morphine CARPU-JECT 4 MG/1 ML DISP.SYRIN IVPUSH ONE (16:57)
[2018-07-21] MEDS ORDERED: morphine SULFATE 4 MG/ML VIAL ONE (17:14)
[2018-07-21 20:16] VITALS: PULSE 91; TEMP 99.8
--- NOTE | 2018-07-21 21:04 | PDOC ---
*Physical Exam - Vital Signs Last Vital Signs Temp Pulse Resp BP Pulse Ox 99.8 F H 91 H 20 158/78 98 07/21/18 20:12 07/21/18 20:12 07/21/18 20:12 07/21/18 20:12 07/21/18 20:12 ED Treatment Course - LABORATORY CBC & Chemistry Diagram: 07/21/18 14:00 07/21/18 14:00 - ADDITIONAL ORDERS Additional order review: Laboratory Results 07/21/18 07/21/18 07/21/18 14:00 14:00 14:00 PT with INR 12.40 INR 1.05 PTT (Actin FS) 29.0 Sodium 139 Potassium 4.5 Chloride 106 Carbon Dioxide 27 Anion Gap 6 L BUN 21 H Creatinine 0.6 Creat Clearance w eGFR > 60 Random Glucose 65 L Calcium 9.2 Total Bilirubin 0.4 AST 44 H ALT 25 Alkaline Phosphatase 90 C-Reactive Protein Total Protein 7.2 Albumin 3.4 Blood Type O POSITIVE Antibody Screen Negative 07/21/18 14:00 PT with INR INR PTT (Actin FS) Sodium Potassium Chloride Carbon Dioxide Anion Gap BUN Creatinine Creat Clearance w eGFR Random Glucose Calcium Total Bilirubin AST ALT Alkaline Phosphatase C-Reactive Protein 7.6 H Total Protein Albumin Blood Type Antibody Screen 07/21/18 14:00 RBC 4.25 MCV 79.8 L MCHC 32.2 RDW 21.2 H MPV 8.0 Neutrophils % 68.7 Lymphocytes % 14.0 D Monocytes % 13.9 H Eosinophils % 2.9 Basophils % 0.5 - Medications Given in the ED: ED Medications Discontinued Medications Generic Name Dose Route Start Last Admin Trade Name Leobardo PRN Reason Stop Dose Admin Acetaminophen 1,000 mg 07/21/18 13:16 07/21/18 13:45 Ofirmev Injection - IVPB 07/21/18 13:17 1,000 mg ONCE ONE Administration Morphine Sulfate 4 mg 07/21/18 16:57 07/21/18 17:20 Morphine Injection - IVPUSH 07/21/18 16:58 4 mg ONCE ONE Administration Medical Decision Making - Medical Decision Making 07/21/18 21:02 I received a call from radiologist re: this patient's MRI His MRI is concerning for compression of multiple cauda equina nerve roots, severe canal stenosis, moderate narrowing of the right neural foramen and encroachment on the existing right L2 nerve , mild to moderate narrowing of rhe left neural foramen I have contacted [facility] as pt is 1 year s/p surgical intervention there Call placed to [facility] transfer center Case reviewed with Dr Jay in the [facility] ER he recommends consultation with NSGY Awaiting call back from NSGY 07/21/18 21:[address] Kyle (NSGY) Pt can be transferred to the ER for NSGY evaluation Pt is in agreement Clinical Impression: cauda equina, initial presentation *DC/Admit/Observation/Transfer Diagnosis at time of Disposition: Cauda equina compression - Discharge Dispostion Disposition: TRANSFER ACUTE CARE/OTHER HOSP Condition at time of disposition: Stable - Referrals - Patient Instructions - Post Discharge Activity - Transfer to Acute Care Facility Receiving Facility: [facility] Accepting Physician:: Dr. Jay, Dr. Kyle Transfer comment: 07/21/18 21:23 Transfer to the ER for Neurosurgical Evaluation
[2018-07-21 22:17] VITALS: BP 158/74
== END 2018-07-21 22:10 | disposition short-term general hospital (02) ==
LOC: JER 12:03
PROC: 3E033NZ Introduction of Analgesics, Hypnotics, Sedatives into Peripheral Vein, Percutaneous Approach (ICD-10-PCS; principal; 2018-07-21)
DX: G83.4 Cauda equina syndrome (principal); I10 Essential (primary) hypertension; Z85.46 Personal history of malignant neoplasm of prostate
CPT/HCPCS: 36415; 72146-TC; 72148-TC; 80053; 85025; 85610; 85651; 85730; 86140; 86850; 86900; 86901; 93970-TC; 99285-25; J0131